=== PATIENT | female | born 1955 | race Caucasian/White ===

== ENCOUNTER 2019-02-23 13:53 | Emergency (ER) | payer BC ==
--- NOTE | 2019-02-23 14:50 | EDM.PDOC ---
ED HPI GENERAL MEDICAL PROBLEM - General Chief Complaint: Upper Extremity Injury/Pain Stated Complaint: L ARM INJURY Time Seen by Provider: 02/23/19 14:45 Source of Information: Reports: Patient History Limitations: Reports: No Limitations - History of Present Illness INITIAL COMMENTS - FREE TEXT/NARRATIVE: 63-year-old female presents to the ED from [facility] where she resides. 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 She has pain in her left hand particularly the second MCP joint and her wrist. Reluctant to pronate or supinate the forearm. Onset: Today Onset Date: 02/23/19 Onset Time: 13:10 Duration: Hour(s): Location: Reports: Upper Extremity, Left (Left hand wrist and mid shaft forearm. ) Quality: Reports: Ache, Throbbing Severity: Moderate Improves with: Reports: Rest Worsens with: Reports: Other, Movement Context: Reports: Trauma (Got tripped up and fell on frozen ground on outstretched left hand.). Denies: Activity (Particularly tempted to flex or extend the wrist or to pronate supinate the forearm), Exercise, Lifting, Sick Contact Associated Symptoms: Reports: No Other Symptoms Treatments HAUNTED HISTORY TOUR GUIDE: Reports: Other (see below) (None.) Left Wrist Pain Score (Numeric/FACES): 4 - Related Data Allergies Allergy/AdvReac Type Severity Reaction Status Date / Time No Known Allergies Allergy Verified 02/23/19 14:38 Home Meds: Home Meds oxyCODONE HCl/Acetaminophen [Percocet 5-325 mg Tablet] 1 - 2 each PO Q4H PRN # 20 tablet 02/23/19 [Rx] Past Medical History - Past Surgical History Female Surgical History: Reports: Other (See Below) (Vaginal hysterectomy laparoscopic-assisted with removal of both ovaries and A&P repair the same sitting.) Social & Family History - Living Situation & Occupation Living situation: Reports: Occupation: Employed Review of Systems - Review of Systems Review Of Systems: See Below Constitutional: Reports: No Symptoms Eyes: Reports: No Symptoms Ears: Reports: No Symptoms Nose: Reports: No Symptoms Mouth/Throat: Reports: No Symptoms Respiratory: Reports: No Symptoms Cardiovascular: Reports: No Symptoms GI/Abdominal: Reports: No Symptoms Genitourinary: Reports: No Symptoms Musculoskeletal: Reports: Joint Pain (Left wrist pain and hand pain since she fell today.), Other (Previous fracture of her right distal radius as a child right foot a year ago requiring casting.) Skin: Reports: Bruising (Mild bruising left hand over the second MCP joint) Neurological: Reports: No Symptoms Psychiatric: Reports: No Symptoms ED EXAM, GENERAL - Physical Exam Exam: See Below Exam Limited By: No Limitations General Appearance: Alert, WD/WN, Mild Distress, Other (Dentures 36.6 pulse is 79 and sinus respiratory is 18 BP is 125/87 sats are 99% on room air) Eye Exam: Bilateral Eye: Normal Inspection, PERRL Head: Atraumatic, Normocephalic Neck: Normal Inspection, Supple, Non-Tender, Full Range of Motion. No: Lymphadenopathy (L), Lymphadenopathy (R) Respiratory/Chest: No Respiratory Distress, Lungs Clear, Normal Breath Sounds, No Accessory Muscle Use Peripheral Pulses: 2+: Radial (L), Radial (R) Extremities: Other (Patient is very reluctant to move her left wrist and forearm. She has swelling over the dorsal hand particularly the second MCP joint. There is swelling over aspect of the left wrist. There is swelling midshaft of the forearm. She is reluctant to do pronator supinate the forearm and flex extend abduct or adduct the wrist at all. It is a deformity of the distal right radius with some dorsal fragment of bone in this area.) Neurological: Alert, Oriented, CN II-XII Intact, Normal Cognition, Normal Gait Psychiatric: Normal Affect, Normal Mood Skin Exam: Warm, Dry, Intact, Normal Color, No Rash ED TRAUMA EXTREMITY PROCEDURES - Splinting Left Upper Extremity Splint Material: Fiberglass Splint Design: Gutter, Posterior Applied & Form Fitted By: Provider Provider Post-Splint Application NV Check: NV Status Normal Complications: No Course - Vital Signs Last Recorded V/S: Last Vital Signs Temp 36.6 C 02/23/19 14:35 Pulse 79 02/23/19 14:35 Resp 18 02/23/19 14:35 BP 125/87 02/23/19 14:35 Pulse Ox 99 02/23/19 14:35 - Orders/Labs/Meds Orders: Active Orders 24 hr Category Date Time Status Forearm 2V Lt [CR] Stat Exams 02/23/19 14:47 Taken Hand Comp Min 3V Lt [CR] Stat Exams 02/23/19 14:45 Taken Wrist Comp Min 3V Lt [CR] Stat Exams 02/23/19 14:46 Taken DME for Discharge [COMM] Stat Oth 02/23/19 17:08 Ordered - Radiology Interpretation Free Text/Narrative:: 63-year-old female presents to the ED for evaluation of injury to her left upper extremity. Patient states s tripped over some grasses today while she was outside and fell on outstretched left hand. She has pain and swelling over the second MCP joint of her left hand and ulnar aspect of the wrist with some swelling. Also some swelling and redness midshaft of the forearm on the left side and she is very reluctant to pronator supinate the forearm. She doesn't have any pain at the L4 distal humerus or acromioclavicular joint. Plan she will have x-rays of her left hand, left wrist, left forearm. - Re-Assessments/Exams Free Text/Narrative Re-Assessment/Exam: 02/23/19 16:30 x-ray of the left hand reveals no obvious fractures in the hand or carpal bones. X-rays of the forearm reveal a fracture of the distal radius with a fragment displaced medially between the ulna and radius with separation of the articular surface. There is very slight impaction of the fracture. Fractures are identified in the forearm. She will be placed in a radial gutter Orthoplast splint above elbow and a sling today. Offered analgesia but she declined at this time. 02/23/19 17:11 Ortho-Glass splint by a radial gutter and posterior slab has been placed to immobilize her distal radius fracture. I did write a prescription for Percocet 5/325 mg tablets and she will fill it but she feels she likely won't need it. She will follow-up with Dr. Ramos in clinic next week to develop a plan to repair her fracture distal radius. She will elevated in a sling until that time and apply ice pack one half hour out of every 4 hours. Departure - Departure Time of Disposition: 16:56 Disposition: Home, Self-Care 01 Condition: Fair Clinical Impression: Fracture of distal end of radius with dorsal angulation Closed fracture of radius Qualifiers: Encounter type: initial encounter Radius location: distal Fracture morphology: Colles' Laterality: left Qualified Code(s): S52.532A - Colles' fracture of left radius, initial encounter for closed fracture - Discharge Information *PRESCRIPTION DRUG MONITORING PROGRAM REVIEWED*: Not Applicable *COPY OF PRESCRIPTION DRUG MONITORING REPORT IN PATIENT LILIANA: Not Applicable Prescriptions: oxyCODONE HCl/Acetaminophen [Percocet 5-325 mg Tablet] 1 - 2 each PO Q4H PRN # 20 tablet PRN Reason: pain relief. Instructions: Radial Fracture, How to Use a Sling, [id number], Cast or Splint Care, Adult Referrals: Shari Payne CORPORATE BANKING OFFICER [Primary Care Provider] - Forms: ED Department Discharge Additional Instructions: Evaluation the emergency room today in regards to injuries to the left hand and wrist that occurred from a fall outside today. Fall on outstretched hand on frozen ground resulted in acute injury to the distal left wrist. Over the second metacarpal head but no fractures were identified in your hand x-rays of the wrist confirm a fracture of the distal radius which is the forearm bone on the thumb side. Fortunately there is a fragment of bone that is going to need to be put back into position by orthopedic surgeon and likely dependent. No other fractures identified in the forearm bones. The fracture was immobilized today in a long arm above elbow Ortho-Glass splint to maintain current position of the fractured fragment and alleviate pain. Rest using a sling for the next 3 days or so. May use Tylenol or Motrin 600 mg every 6 hours for pain relief as needed. I did write a prescription for stronger pain medication, Percocet 5/325 mg strength. Quite often patients get by with Motrin 600 mg tablet and 1 Percocet tablet for pain relief as needed. Please phone orthopedic surgeon's office -on Monday morning when his office opens. The #[phone]. They will make appropriate arrangements to see you and discuss surgical options and management of your fracture. May apply ice to the source area on the wrist even through the splint for work one half hour out of every 4 hours for the next couple of days to help reduce swelling. You should remain in the sling most of the time to help reduce swelling. - My Orders Last 24 Hours: My Active Orders 02/23/19 14:45 Hand Comp Min 3V Lt [CR] Stat 02/23/19 14:46 Wrist Comp Min 3V Lt [CR] Stat 02/23/19 14:47 Forearm 2V Lt [CR] Stat 02/23/19 17:08 DME for Discharge [COMM] Stat - Assessment/Plan Last 24 Hours: My Active Orders 02/23/19 14:45 Hand Comp Min 3V Lt [CR] Stat 02/23/19 14:46 Wrist Comp Min 3V Lt [CR] Stat 02/23/19 14:47 Forearm 2V Lt [CR] Stat 02/23/19 17:08 DME for Discharge [COMM] Stat
--- NOTE | 2019-02-25 06:32 | CR ---
Left wrist: Four views of the left wrist were obtained. Distal radial fracture is seen mostly in transverse orientation involving the metaphysis. There is a vertical fracture line being seen along the ulnar side of the radius with a displaced epiphyseal fragment. Soft tissue swelling is noted. Minimal degenerative change is noted within CMC joint of the thumb. Soft tissue swelling is seen. No additional fracture is noted. Impression: 1. Distal radial fracture as noted above. 2. Soft tissue swelling. Diagnostic code #3 This report was dictated in [place] Standard Time
--- NOTE | 2019-02-25 06:32 | CR ---
Left forearm: Two views of the left forearm were obtained. Comparison: No previous study. Calcifications are seen within the soft tissues believed to be dystrophic and felt to be incidental. Distal radial fracture is again noted and was described on wrist exam. No additional fracture or other bony abnormality is seen. Impression: 1. Distal radial fracture as described on wrist exam. 2. Other incidental findings. 3. Nothing acute is otherwise seen on the left forearm study. Diagnostic code #3 This report was dictated in [place] Standard Time
--- NOTE | 2019-02-25 06:32 | CR ---
Left hand: Four views of the left hand were obtained. Comparison: No prior hand study. Mild joint space narrowing scattered within the MCP, DIP and PIP joints. Fracture is identified within the distal radius. There is mild posterior impaction being seen. Fracture is mostly transverse in orientation although there is a vertical fracture line showing a displaced epiphyseal fragment along the ulnar side of the radius. No additional fracture or other bony abnormality is appreciated. Soft tissue swelling is noted. Impression: 1. Wrist fracture as noted above. 2. Mild degenerative change within the hand. 3. No other acute bony abnormality is appreciated. Diagnostic code #3 This report was dictated in [place] Standard Time
== END 2019-02-23 17:25 | disposition home or self-care (01) ==
LOC: JD.ED 13:53
DX: S52.532A Colles' fracture of left radius, initial encounter for closed fracture (principal); W01.0XXA Fall on same level from slipping, tripping and stumbling without subsequent striking against object, initial encounter
CPT/HCPCS: 29125; 73090-26-LT; 73090-LT; 73110-26-LT; 73110-LT; 73130-26-LT; 73130-LT; 99283; 99283-25

== ENCOUNTER 2019-04-02 10:33 | Emergency (ER) | payer BC ==
[2019-04-02] MEDS ORDERED: Sodium Chloride 0.9% 10 ML Syringe FLUSH PRN (10:52)
[2019-04-02] MEDS ORDERED: cefTRIAXone 1 GM in Sodium Chloride 0.9% 100 ML IV ONE (12:04)
--- NOTE | 2019-04-02 12:04 | EDM.PDOC ---
ED HPI GENERAL MEDICAL PROBLEM - General Chief Complaint: Lower Extremity Injury/Pain Stated Complaint: [facility] Time Seen by Provider: 04/02/19 10:34 Source of Information: Reports: Patient, EMS History Limitations: Reports: No Limitations - History of Present Illness INITIAL COMMENTS - FREE TEXT/NARRATIVE: The patient presents by [facility] for a right hip fracture. She was outside her house pushing some snow and she slipped on some ice and fractured her right hip. She went to the [facility] and she had an x-ray that showed a slightly impacted subcapital fracture within the right hip. She came by ambulance. She has very little pain when she is not moving. The clinic also said she had a UTI. The did an urine sample. She did not hit her head or hurt her neck. She has no chest pain or shortness of breath. She has no medical problems. Onset: Sudden Duration: Hour(s): Location: Reports: Lower Extremity, Right Quality: Reports: Sharp Severity: Mild Improves with: Reports: Immobilization Worsens with: Reports: Movement Context: Reports: Trauma (Slipped on the ice) Associated Symptoms: Reports: No Other Symptoms - Related Data Allergies Allergy/AdvReac Type Severity Reaction Status Date / Time No Known Allergies Allergy Verified 04/02/19 10:56 Home Meds: Home Meds . 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 Female Surgical History: Reports: Hysterectomy, Other (See Below) Other Female Surgeries/Procedures: cystocele/rectocele repair. Musculoskeletal Surgical History: Reports: ORIF, Other (See Below) Other Musculoskeletal Surgeries/Procedures:: Fx'd wrist in childhood with repair. Social & Family History - Tobacco Use Smoking Status *Q: Never Smoker Second Hand Smoke Exposure: No - Caffeine Use Caffeine Use: Reports: Coffee - Recreational Drug Use Recreational Drug Use: No - Living Situation & Occupation Living situation: Reports: Occupation: Employed Review of Systems - Review of Systems Review Of Systems: See Below Constitutional: Reports: No Symptoms Eyes: Reports: No Symptoms Ears: Reports: No Symptoms Nose: Reports: No Symptoms Mouth/Throat: Reports: No Symptoms Respiratory: Reports: No Symptoms Cardiovascular: Reports: No Symptoms GI/Abdominal: Reports: No Symptoms Genitourinary: Reports: No Symptoms Musculoskeletal: Reports: Other (Right hip pain) ED EXAM, GENERAL - Physical Exam Exam: See Below Exam Limited By: No Limitations General Appearance: Alert, No Apparent Distress Ears: Normal External Exam Nose: Normal Inspection Head: Atraumatic, Normocephalic Neck: Normal Inspection Respiratory/Chest: No Respiratory Distress, Lungs Clear, Normal Breath Sounds Cardiovascular: Regular Rate, Rhythm, No Edema, No Murmur GI/Abdominal: Soft, Non-Tender, No Organomegaly, No Mass Extremities: Other (Pain upon palpation to the right hip. Good sensation and pulses distally) Course - Vital Signs Last Recorded V/S: Last Vital Signs Temp 97.8 F 04/02/19 10:33 Pulse 88 04/02/19 10:33 Resp 16 04/02/19 10:33 BP 132/69 04/02/19 10:33 Pulse Ox 100 04/02/19 10:33 - Orders/Labs/Meds Orders: Active Orders 24 hr Category Date Time Status Cardiac Monitoring [RC] . DIRECTED Care 04/02/19 10:53 Active EKG Documentation Completion [RC] STAT Care 04/02/19 10:53 Active Peripheral IV Care [RC] . DIRECTED Care 04/02/19 10:53 Active Sodium Chloride 0.9% [Saline Flush] Med 04/02/19 10:52 Active 10 ml FLUSH ASDIRECTED PRN Peripheral IV Insertion Adult [OM.PC] Routine Oth 04/02/19 10:52 Ordered Medication Orders Sodium Chloride (Saline Flush) 10 ml FLUSH ASDIRECTED PRN PRN Reason: Keep Vein Open Last Admin: 04/02/19 11:00 Dose: 10 ml Labs: Laboratory Tests 04/02/19 04/02/19 Range/Units 10:45 10:45 WBC 10.07 H (3.98-10.04) K/mm3 RBC 4.83 (3.98-5.22) M/mm3 Hgb 14.6 D (11.2-15.7) gm/dl Hct 43.6 (34.1-44.9) % MCV 90.3 (79.4-94.8) fl MCH 30.2 (25.6-32.2) pg MCHC 33.5 (32.2-35.5) g/dl RDW Std Deviation 43.4 (36.4-46.3) fL Plt Count 200 (182-369) K/mm3 MPV 11.9 (9.4-12.3) fl Neut % (Auto) 83.7 H (34.0-71.1) % Lymph % (Auto) 11.3 L (19.3-51.7) % [place] % (Auto) 4.4 L (4.7-12.5) % Eos % (Auto) 0.2 L (0.7-5.8) Baso % (Auto) 0.2 (0.1-1.2) % Neut # (Auto) 8.43 H (1.56-6.13) K/mm3 Lymph # (Auto) 1.14 L (1.18-3.74) K/mm3 [place] # (Auto) 0.44 H (0.24-0.36) K/mm3 Eos # (Auto) 0.02 L (0.04-0.36) K/mm3 Baso # (Auto) 0.02 (0.01-0.08) K/mm3 Sodium 138 (136-145) mEq/L Potassium 3.2 L (3.5-5.1) mEq/L Chloride 99 (98-107) mEq/L Carbon Dioxide 27 (21-32) mEq/L Anion Gap 15.2 H (5-15) BUN 18 (7-18) mg/dL Creatinine 0.7 (0.55-1.02) mg/dL Est Cr Clr Drug Dosing 72.10 mL/min Estimated GFR (MDRD) > 60 (>60) mL/min BUN/Creatinine Ratio 25.7 H (14-18) Glucose 93 (80-115) mg/dL Calcium 9.6 (8.5-10.1) mg/dL Total Bilirubin 0.6 (0.2-1.0) mg/dL AST 27 (15-37) U/L ALT 27 (14-59) U/L Alkaline Phosphatase 69 (46-116) U/L Troponin I < 0.017 (0.00-0.056) ng/mL Total Protein 7.5 (6.4-8.2) g/dl Albumin 4.1 (3.4-5.0) g/dl Globulin 3.4 gm/dL Albumin/Globulin Ratio 1.2 (1-2) Meds: Medications Generic Name Dose Route Start Last Admin Trade Name Freq PRN Reason Stop Dose Admin Sodium Chloride 10 ml 04/02/19 10:52 04/02/19 11:00 Saline Flush FLUSH 10 ml ASDIRECTED PRN Administration Keep Vein Open - Re-Assessments/Exams Free Text/Narrative Re-Assessment/Exam: 04/02/19 12:06 I ordered an IV saline lock, labs, and EKG. The x-ray as read by Dr Lund shows slightly impacted subcapital fracture within the right hip. AP pelvis study is otherwise unremarkable. Her CBC and CMP look good. Her troponin is negative. Her EKG shows a NSR with no acute changes. I called [facility] in [place] and talked with Dr Cortes the orthopedic surgeon global implementation manager and Dr Castano the ER doctor and they accepted the patient. The patient last ate at 7:30am. Departure - Departure Time of Disposition: 12:10 Disposition: DC/Tfer to Acute Hospital 02 Condition: Fair Clinical Impression: Closed right hip fracture Qualifiers: Encounter type: initial encounter Qualified Code(s): S72.001A - Fracture of unspecified part of neck of right femur, initial encounter for closed fracture Fall Qualifiers: Encounter type: initial encounter Qualified Code(s): W19.XXXA - Unspecified fall, initial encounter - Discharge Information Referrals: Shari Payne QA TESTER [Primary Care Provider] - Sepsis Event Note - Evaluation Sepsis Screening Result: No Definite Risk - Focused Exam Vital Signs: Vital Signs Temp Pulse Resp BP Pulse Ox 04/02/19 10:33 97.8 F 88 16 132/69 100 Date Exam was Performed: 04/02/19 Time Exam was Performed: 11:59 - My Orders Last 24 Hours: My Active Orders 04/02/19 10:52 Sodium Chloride 0.9% [Saline Flush] 10 ml FLUSH ASDIRECTED PRN Peripheral IV Insertion Adult [OM.PC] Routine 04/02/19 10:53 Cardiac Monitoring [RC] . DIRECTED EKG Documentation Completion [RC] STAT Peripheral IV Care [RC] . DIRECTED - Assessment/Plan Last 24 Hours: My Active Orders 04/02/19 10:52 Sodium Chloride 0.9% [Saline Flush] 10 ml FLUSH ASDIRECTED PRN Peripheral IV Insertion Adult [OM.PC] Routine 04/02/19 10:53 Cardiac Monitoring [RC] . DIRECTED EKG Documentation Completion [RC] STAT Peripheral IV Care [RC] . DIRECTED
== END 2019-04-02 13:22 ==
LOC: SUPCPDRO 10:33 → JD.ED 10:33
DX: S72.011A Unspecified intracapsular fracture of right femur, initial encounter for closed fracture (principal); N39.0 Urinary tract infection, site not specified; W00.0XXA Fall on same level due to ice and snow, initial encounter
CPT/HCPCS: 36415; 80053; 84484; 85025; 93005; 96365; 99285; J0696; J7050

== ENCOUNTER 2024-05-30 08:28 | Emergency (ER) | payer MEDICARE ==
[2024-05-30] MEDS: Dicyclomine 20 MG/2 ML SDV IM ONE (09:38)
== END 2024-05-30 10:10 | disposition home or self-care (01) ==
LOC: JD.ED 08:28
DX: K59.00 Constipation, unspecified (principal); M54.9 Dorsalgia, unspecified; Z79.899 Other long term (current) drug therapy
CPT/HCPCS: 74018; 96372; 99284; J0500; 99283